=== PATIENT | female | born 1945 | race Caucasian/White ===

== ENCOUNTER 2017-09-13 07:08 | Day surgery (SDC) | payer MEDICARE, BC ==
--- NOTE | 2017-08-31 06:46 | HP ---
CC: Lucina Aldridge MD in [place], [place] * ADMISSION HISTORY AND PHYSICAL: DATE OF ADMISSION: 09/13/17 ATTENDING SURGEON: Tutu Echevarria MD * (OSEAS Johnson dictating). CHIEF COMPLAINT: Symptomatic cholelithiasis. HISTORY OF PRESENT ILLNESS: This is a 71-year-old hypertensive female who underwent ultrasound of the right upper quadrant on 04/11/17 ordered by her primary care provider primarily because of family history of gallbladder disease. The patient has not really had any symptoms prior to that to suggest active gallbladder disease. The ultrasound did show innumerable stones in the gallbladder, but without any evidence of acute cholecystitis or biliary obstruction. In the time since that ultrasound, the patient has noted various vague symptoms that have not always been consistent. She describes a generalized discomfort that sometimes she would note in the area of the right scapula and other times in the right mid abdomen and right lower quadrant extending to the pelvic area. She states that she is unsure if there has been any relationship to eating. She does describe some bloating and states that she generally feels better when she is up and moving. The right lower quadrant discomfort has occurred just in the past 2 weeks. She denies fever or chills, nausea or vomiting (except for the nausea that sometimes occurs in relation to episodes of vertigo). She did have lab work done on 08/14/17. Her liver function tests were completely normal at that time. There is a family history of gallbladder disease in 2 cousins and also her mother who actually of complications related to surgery at age 91. She was seen in the office by Dr. Echevarria on 07/03/17. He has reviewed her history and her diagnostic workup. He discussed options with the patient. She understands the indications for surgery , the risks, benefits, and alternatives as well as the expected perioperative course. She would like to proceed as scheduled with laparoscopic cholecystectomy. PAST MEDICAL HISTORY: 1. Hypertension. 2. Arthritis. 3. Vertigo. 4. Thyroid nodule ( status post FNA; benign). 5. Obesity. 6. History of migraine headaches (migraine variant was scotoma without associated headache). 7. Osteopenia. 8. Rosacea. 9. Tinnitus. 10. Left bundle-branch block by EKG change without any associated symptoms ( previous workup was negative). PAST SURGICAL HISTORY: Previous surgeries include excision of lipoma of the back and dental extractions. No reported problems. CURRENT MEDICATIONS: 1. Metoprolol succinate extended release 25 mg one half tablet once daily. 2. Sulfacetamide solution 10% topically b.i.d. for rosacea. 3. Aspirin 325 mg p.r.n. 4. Valacyclovir 1 g p.r.n. for exacerbation of oral herpes. 5. Finacea topically b.i.d. for rosacea. 6. B complex with folic acid. 7. Vitamin D 1000 IU once daily (it was noted on her recent lab work that her vitamin D level was slightly below normal range. She was instructed to discuss modifications to her supplementation with her PCP). DRUG ALLERGIES: None known (she does report allergy to LEGUMES with reaction including facial swelling and difficulty breathing). FAMILY HISTORY: Negative for anesthesia problems, bleeding or clotting disorder. SOCIAL HISTORY: The patient lives alone. 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 She is a former smoker who quit in the 80s. She has a total 10 pack year history. She drinks on average 1 to 2 alcoholic drinks per week. She denies other recreational drug use. REVIEW OF SYSTEMS: General: No recent constitutional symptoms or acute illnesses other than described in the HPI. Weight has been stable. Eyes: No recent changes in vision. Ears, Nose, Throat: No problems reported. Cardiovascular: She is treated for hypertension. No recent chest pain, palpitations, history of CT or angina. No history of heart murmur. Respiratory : No chronic cough or shortness of breath. GI: As above per HPI. No lower GI symptoms. Her last colonoscopy was in 2007, reportedly normal and she is scheduled for repeat colonoscopy later this year. No interval symptoms of concern. : No problems reported. HEALTH CARE LIAISON: No problems reported. Most recent mammogram in February 2017 reportedly normal. Endocrine: No diabetes. She has undergone FNA of a right thyroid nodule, which was apparently benign. No associated symptoms. Musculoskeletal: Osteoarthritis of various joints. Neuro /Psych: No problems reported. PHYSICAL EXAMINATION GENERAL: Well-nourished, obese female, in no acute distress. VITAL SIGNS: Height 68 inches, weight 196 pounds, BMI 30, blood pressure 142/84 , pulse 60, respirations 16. HEENT: Pupils equal and round, reactive. EOMs intact. No conjunctival pallor. Oropharynx: Teeth in good repair. No intraoral lesions. NECK: No lymphadenopathy, thyromegaly, or masses. Unclear regarding right thyroid nodule. HEART: Regular rate and rhythm. No murmur noted. LUNGS: Clear to auscultation. No wheezes. ABDOMEN: She has some mild tenderness in the right mid abdomen and some slight tenderness in the right upper quadrant with an equivocal France's sign. Likewise, she has an area of tenderness in the left lower quadrant to a lesser degree. The remainder of the abdomen is soft and nontender. There are no palpable masses or organomegaly. There are no palpable inguinal hernias. GENITALIA: Not done. RECTAL: Not done. BACK: No spinous process or CVA tenderness. EXTREMITIES: No edema. NEUROLOGICAL: Grossly intact. SKIN: Warm and dry. No suspicious rashes or lesions noted. IMPRESSION: Symptomatic cholelithiasis. PLAN: Laparoscopic cholecystectomy. OSEAS JOHNSON [id number]/[facility] #: [id number] [facility]OSPITALJustine
[~2017-09-13 07:08] MED LIST: Buffered Lidocaine 0.9% SYRIN* 5 ML/SYR SYRINGE INTRADERM ONE; Famotidine IV* 10 MG/ML 2 ML (20 mg) IV ONE; Metoclopramide TAB* 10 MG PO ONE
[2017-09-13] MEDS ORDERED: Famotidine IV* 10 MG/ML 2 ML (20 mg) ONE (07:12)
[2017-09-13] MEDS ORDERED: ceFAZolin 2 GM PREMIX (*) 2 GM/50 ML BAG IVPB ONE (07:13)
[2017-09-13] MEDS ORDERED: Metoclopramide TAB* 10 MG ONE (07:13)
[2017-09-13] MEDS ORDERED: Dexamethasone IV* 4 MG/ML 1 ML (4 MG) ONE (08:13)
[2017-09-13] MEDS ORDERED: fentaNYL* 50 MCG/ML 2 ML VIAL (100 MCG VIAL) ONE (08:13)
[2017-09-13] MEDS ORDERED: Midazolam* 1 MG/ML 5 ML VIAL (5 MG) ONE (08:13)
[2017-09-13] MEDS ORDERED: Lidocaine 2% PF * 5 ML VIAL ONE (08:13)
[2017-09-13] MEDS ORDERED: Cisatracurium* 2 MG/ML MDV 5 ML ONE (08:13)
[2017-09-13] MEDS ORDERED: Propofol* 10 MG/ML 20 ML BTL IV PUSH ONE (08:13)
[2017-09-13] MEDS ORDERED: Ketorolac INJ* 30 MG/ML 1 ML VIAL ONE (08:13)
[2017-09-13] MEDS ORDERED: Ondansetron ODT TAB* 4 MG ONE ×2 (08:13→11:02)
[2017-09-13] MEDS ORDERED: Bupivacaine 0.5% SDV PF* 30ML VIAL ONE (08:39)
[2017-09-13] MEDS ORDERED: oxyCODONE/Acetamin 5/325 MG* TAB PO PRN (09:39)
[2017-09-13] MEDS ORDERED: fentaNYL* 50 MCG/ML 2 ML VIAL (100 MCG VIAL) IV PRN (09:39)
[2017-09-13] MEDS ORDERED: Ondansetron ODT TAB* 4 MG PO PRN (09:39)
[2017-09-13] MEDS ORDERED: Naloxone* 0.4 MG/ML 1 ML VIAL IV PRN (09:39)
[2017-09-13] MEDS ORDERED: Neostigmine Methylsulfate* 1 MG/ML 10 ML VIAL (1 mg/ml) ONE (09:57)
[2017-09-13] MEDS ORDERED: Glycopyrrolate IV* 0.2 MG/ML 1 ML VIAL ONE (09:57)
--- NOTE | 2017-09-13 10:13 | BRIEFOPN ---
Brief Operative Note - Surgery Procedures: Pre-OP Diagnoses: chonic cholecystitis Post-op Diagnosis: same Procedure: Laparoscopic cholecystectomy Surgeon: Swathi Asst: Samson Anethesia: LOUISE EBL: minimal IVF: 1500cc LR Specimen: gallbladder Drains: none
[2017-09-13] MEDS ORDERED: DiMENhydriNATE IV* 50 MG/ML VIAL ONE (12:01)
--- NOTE | 2017-09-13 12:40 | OP ---
CC: Lucina Aldridge MD * DATE OF OPERATION: 09/13/17 - [facility] DATE OF : 47 SURGEON: Tutu Echevarria MD BROKER IN CHARGE: Jud Davies NP ANESTHESIOLOGIST: Dr. Valentin. ANESTHESIA: General. PRE-OP DIAGNOSIS: Symptomatic cholelithiasis and chronic cholecystitis. POST-OP DIAGNOSIS: Symptomatic cholelithiasis and chronic cholecystitis. OPERATIVE PROCEDURE: Laparoscopic cholecystectomy. ESTIMATED BLOOD LOSS: Minimal. FLUIDS: 1500 cc of crystalloid fluid given. SPECIMEN: Gallbladder. DRAINS: None. DESCRIPTION OF PROCEDURE: The patient was identified in the preoperative area, consent signed. After discussion of the case, she was marked and brought to the operating room and placed on the operating room table in a supine position. Preoperative antibiotics were given. Sequential devices were placed on bilateral lower extremities and general anesthesia was induced. The patient's abdomen was prepped and draped in standard surgical fashion, a time-out was performed. An incision was made supraumbilically, this was depend down the anterior fascia which was elevated and a Veress needle inserted into the abdominal cavity which was then allowed to insufflate to a pressure of 15 mmHg. The patient tolerated the insufflation well. Veress needle was removed and a 5-mm trocar was inserted. Laparoscope was inserted through this and there was no evidence of injury from the trocar or the Veress needle. Attention was turned to the right upper quadrant, additional trocars were placed in the following positions at 12 mm in the epigastrium and two 5 mm along the right costal margin. Gallbladder was enlarged, dilated. It was grasped and retracted over the liver. The infundibular region was grasped and retracted towards the right lower quadrant. We could clearly see both cystic duct and common bile duct. They were adhered to each other and there was no significant triangle between this, but we made this with scissors such that we could see the cystic duct better. We took electrocautery to release the medial and lateral attachments of the gallbladder from the liver bed. Cystic duct was isolated, doubly clipped , and ligated and then artery was identified on the posterior aspect and not in the typical location. This was doubly clipped and ligated and the gallbladder was removed from the liver bed and placed in the endoscopic retrieval bag and brought out through the epigastric port site. Review of the cystic artery stump showed no bleeding or bile. We did place a gauze in there to dab the areas and again, no bleeding or bile was identified. Cystic duct stump was intact and we then allowed the abdomen to collapse as we put the patient back into a neutral position. Trocars were removed under direct vision and all 4 skin incisions were reapproximated with 4-0 Monocryl subcuticular sutures followed by Steri-Strips and sterile dressing. The patient tolerated the procedure well, was awoken up in the OR and transferred to the PACU in stable condition. [id number]/[facility] #: [id number] [facility]
[2017-09-13 13:55] VITALS: BP 135/69
== END 2017-09-13 13:57 | disposition home or self-care (01) ==
LOC: OR 07:08
PROVIDERS: ATTEND Surgery
DX: K80.10 Calculus of gallbladder with chronic cholecystitis without obstruction (principal); I10 Essential (primary) hypertension; I44.7 Left bundle-branch block, unspecified; I73.00 Raynaud's syndrome without gangrene; E04.1 Nontoxic single thyroid nodule; M19.90 Unspecified osteoarthritis, unspecified site; R42 Dizziness and giddiness; G43.909 Migraine, unspecified, not intractable, without status migrainosus; L71.9 Rosacea, unspecified; E66.9 Obesity, unspecified; Z87.891 Personal history of nicotine dependence
CPT/HCPCS: 88304; A9270-GY; J0690; J1100; J1240; J1885; J2250; J2704; J2710; J3010

== ENCOUNTER 2018-07-26 19:32 | Emergency (ER) | payer MEDICARE, BC ==
[2018-07-26 19:40] VITALS: BP 166/72
--- NOTE | 2018-07-26 19:48 | ED ---
Respiratory - HPI Summary HPI Summary: 72 year old female presents with cough for the past 3 weeks. States it is getting worse went from dry to productive. She also developed a fever for the past 2 days ago. She denies any chest pain or shortness breath. No bowel pain. No nausea and vomiting. She denies any sinus congestion. No headache. She states she was exposed to someone who had a cold last week. Has history of high blood pressure. 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 Denies: Hx Pacemaker/ICD Respiratory History: Denies: Hx Asthma, Hx Chronic Obstructive Pulmonary Disease (COPD) GI History: Reports: Other GI Disorders - GALLBLADDER WITH STONES Denies: Hx Jaundice, Hx Ulcer History: Denies: Hx Renal Disease Musculoskeletal History: Reports: Hx Arthritis - OSTEO GENERALIZED, Other Musculoskeletal History - SPINAL STENOSIS Denies: Hx Osteoporosis Sensory History: Reports: Hx Contacts or Glasses Denies: Hx Hearing Aid Comment Only: Hx Cataracts - BEGINNING Opthamlomology History: Reports: Hx Contacts or Glasses Comment Only: Hx Cataracts - BEGINNING Neurological History: Reports: Other Neuro Impairments/Disorders - 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 09/2017 tess Hx Anesthesia Reactions: No Infectious Disease History: No Infectious Disease History: Denies: Hx Hepatitis, Hx Human Immunodeficiency Virus (HIV), History Other Infectious Disease, Traveled Outside the [place] in Last 30 Days - Family History Known Family History: Positive: Hypertension, Diabetes, Other - cancer - Social History Alcohol Use: Occasionally Alcohol Amount: 5 MONTHLY Substance Use Type: Reports: None Smoking Status (MU): Former Smoker Type: Cigarettes Have You Smoked in the Last Year: No Review of Systems Positive: Fever, Chills Negative: Chest Pain Positive: Cough. Negative: Shortness Of Breath Negative: Abdominal Pain All Other Systems Reviewed And Are Negative: Yes Physical Exam Triage Information Reviewed: Yes Vital Signs On Initial Exam: Initial Vitals Temp Pulse Resp BP Pulse Ox 98.8 F 75 16 166/72 100 07/26/18 19:34 07/26/18 19:34 07/26/18 19:34 07/26/18 19:34 07/26/18 19:34 Vital Signs Reviewed: Yes Appearance: Positive: Well-Appearing Skin: Positive: Warm, Dry Head/Face: Positive: Normal Head/Face Inspection Eyes: Positive: Normal, EOMI, YOEL, Conjunctiva Clear ENT: Positive: Normal ENT inspection, Pharynx normal, TMs normal Respiratory/Lung Sounds: Positive: Breath Sounds Present, Rhonchi - clears when coughs Cardiovascular: Positive: Normal, RRR Abdomen Description: Positive: Nontender, Soft Bowel Sounds: Positive: Present Musculoskeletal: Positive: Normal Neurological: Positive: Normal Psychiatric: Positive: Normal Diagnostics - Vital Signs Vital Signs Temp Pulse Resp BP Pulse Ox 07/26/18 19:34 98.8 F 75 16 166/72 100 - Laboratory Lab Statement: Any lab studies that have been ordered have been reviewed, and results considered in the medical decision making process. - Radiology chest Radiology Interpretation Completed By: ED Physician Summary of Radiographic Findings: no active disease Disposition - Course Course Of Treatment: 72 year old female presents with cough for the past 3 weeks. States it is getting worse went from dry to productive. She also developed a fever for the past 2 days ago. She denies any chest pain or shortness breath. No bowel pain. No nausea and vomiting. She denies any sinus congestion. No headache. She states she was exposed to someone who had a cold last week. Has history of high blood pressure. On exam lungs some rhnochi heard that clear when cough. flu neg. chest xray read by me as normal. will new persistent fevers will add on azithromycin to cover for potenital early pneumonia. patient can follow up with primary about htn. patient understand and agrees with plan. - Differential Dx - Cardiopulmonary Differential Diagnoses - Cardiopulmonary: Bronchitis, Influenza, Lower Resp Infection - Diagnoses Provider Diagnoses: Bronchitis, Hypertension Discharge - Sign-Out/Discharge Documenting (check all that apply): Patient Departure All imaging exams completed and their final reports reviewed: No - Discharge Plan Condition: Good Disposition: HOME Prescriptions: Azithromycin TAB* [Zithromax TAB (Z-CHUCK) 250 mg #6 tabs] 2 tab PO .TODAY, THEN 1 DAILY #1 chuck Patient Education Materials: Acute Bronchitis (ED) Referrals: Lucina Valentine MD [Primary Care Provider] - Additional Instructions: Take azithromycin two tablets first day, then once a day for 4 days Drink plenty of fluids Take tyenlol every 6 hours as needed for fever Return to ED if develop any new or worsening symptoms - Billing Disposition and Condition Condition: GOOD Disposition: Home - Attestation Statements Provider Attestation: I did not personally examine this patient. I was available for consult.
[2018-07-26 20:05] LABS: Influenza A Molecular NEGATIVE (Negative); Influenza B Molecular NEGATIVE (Negative)
[2018-07-26] MEDS ORDERED: Azithromycin TAB* 250 MG PO ONE (20:17)
== END 2018-07-26 20:25 | disposition home or self-care (01) ==
LOC: UCEAST 19:32
DX: J40 Bronchitis, not specified as acute or chronic (principal); I10 Essential (primary) hypertension; E07.9 Disorder of thyroid, unspecified; I44.7 Left bundle-branch block, unspecified; I73.00 Raynaud's syndrome without gangrene; Z91.048 Other nonmedicinal substance allergy status; Z87.891 Personal history of nicotine dependence
CPT/HCPCS: 71046; 99212; A9270-GY; G0463

== ENCOUNTER 2018-08-22 16:41 | Emergency (ER) | payer MEDICARE, BC ==
[2018-08-22 16:57] VITALS: BP 147/75
--- NOTE | 2018-08-22 17:57 | UC ---
Hand/Wrist HPI - HPI Summary HPI Summary: 72 yo female with left thumb pain and swelling onset after doing yard work she is right handed pain with use pain free at rest - History Of Current Complaint Chief Complaint: UCUpperExtremity Stated Complaint: HAND COMPLAINT Time Seen by Provider: 08/22/18 16:54 Hx Obtained From: Patient Onset/Duration: Gradual Onset, Lasting Days Severity Initially: Mild Severity Currently: Mild Pain Intensity: 1 Pain Scale Used: 0-10 Numeric Character Of Pain: Dull, Aching Aggravating Factor(s): Lifting, Pulling Alleviating Factor(s): Rest Associated Signs And Symptoms: Positive: Swelling. Negative: Redness, Bruising , Fever, Weakness, Numbness/Tingling Related History: Dominant Hand Right Hands: 1 - pain and swelling - Allergies/Home Medications Allergies/Adverse Reactions: Allergies Allergy/AdvReac Type Severity Reaction Status Date / Time bandaids Allergy Mild See Comment Uncoded 08/22/18 16:52 PMH/Surg Hx/FS Hx/Imm Hx Previously Healthy: Yes - Surgical History Surgical History: Yes Surgery Procedure, Year, and Place: LYPOMA REMOVED FROM BACK IN OFFICE PROCEDURE 1989. 09/2017 tess - Family History Known Family History: Positive: Hypertension, Diabetes, Other - cancer - Social History Alcohol Use: Rare Alcohol Amount: 5 MONTHLY Substance Use Type: None Smoking Status (MU): Former Smoker Type: Cigarettes Have You Smoked in the Last Year: No When Did the Patient Quit Smoking/Using Tobacco: 1980s Review of Systems All Other Systems Reviewed And Are Negative: Yes Constitutional: Positive: Negative Skin: Positive: Negative Eyes: Positive: Negative ENT: Positive: Negative Respiratory: Positive: Negative Cardiovascular: Positive: Negative Gastrointestinal: Positive: Negative Genitourinary: Positive: Negative Motor: Positive: Negative Neurovascular: Positive: Negative Musculoskeletal: Positive: Arthralgia Neurological: Positive: Negative Psychological: Positive: Negative Physical Exam Triage Information Reviewed: Yes Appearance: Well-Appearing, No Pain Distress, Well-Nourished Vital Signs: Initial Vital Signs Temp 99.4 F 08/22/18 16:46 Pulse 65 08/22/18 16:46 Resp 16 05/22/19 16:46 BP 147/75 08/22/18 16:46 Pulse Ox 100 08/22/18 16:46 Vital Signs Reviewed: Yes Eyes: Positive: Conjunctiva Clear ENT: Positive: Hearing grossly normal. Negative: Nasal congestion, Nasal drainage, Trismus, Muffled voice, Hoarse voice Neck: Positive: Supple, Nontender, No Lymphadenopathy Respiratory: Positive: Lungs clear, Normal breath sounds, No respiratory distress, No accessory muscle use Cardiovascular: Positive: RRR, No Murmur Musculoskeletal: Positive: Edema @ - left thenar emeinence, Other: - se image Neurological: Positive: Alert Psychological Exam: Normal Skin Exam: Normal Diagnostics - Radiology No standard instances Radiology Interpretation Completed By: Radiologist Summary of Radiographic Findings: Degenerative changes of the left thumb as described above without. radiographically apparent acute abnormality Hand/Wrist Course/Dx - Differential Dx/Diagnosis Provider Diagnosis: Arthritis of carpometacarpal (CMC) joint of left thumb Discharge - Sign-Out/Discharge Documenting (check all that apply): Patient Departure All imaging exams completed and their final reports reviewed: Yes - Discharge Plan Condition: Stable Disposition: HOME Patient Education Materials: Osteoarthritis (ED) Referrals: Lucina Valentine MD [Primary Care Provider] - 1 Week (recheck in 1-2 weeks) Additional Instructions: rest heat tylenol or advil if needed for pain - Billing Disposition and Condition Condition: STABLE Disposition: Home
== END 2018-08-22 18:11 | disposition home or self-care (01) ==
LOC: UCEAST 16:41
DX: M19.042 Primary osteoarthritis, left hand (principal); Z87.891 Personal history of nicotine dependence
CPT/HCPCS: 99211; G0463